=== PATIENT | female | born 2000 | race Hispanic/Latino ===

== ENCOUNTER 2020-09-11 15:32 | Inpatient (IN) | payer OTHER ==
[2020-09-11] MEDS ORDERED: Albuterol Sulfate 2.5 mg/3 ml Neb ONE ×2 (15:42→15:43)
[2020-09-11] MEDS ORDERED: Dexamethasone 10 MG/ML VIAL ONE (15:43)
[2020-09-11 16:09] LABS: Hemoglobin 12.3 g/dL (12.0-15.5); Mean Corpuscular HGB CONC 33.5 g/dL (32.0-36.0); Mean Corpuscular Hemoglobin 29.9 pg (27.0-33.0); Mean Corpuscular Volume 89.3 fl (81.6-98.3); Mean Platelet Volume 10.5 fl (7.4-10.4); Platelet Count 363 10x3/uL (150-450); RBC Distribution Width 12.1 % (11.5-14.5); Red Blood Cell (RBC) Count 4.11 10x6/uL (3.90-5.03); White Blood Cell (WBC) Count 17.7 10x3/uL (3.5-10.5)
[2020-09-11 16:10] LABS: MDiff Complete? YES
[2020-09-11 16:14] LABS: ALT (SGPT) 10 U/L (8-55); AST (SGOT) 15 U/L (5-34); Albumin 3.9 g/dL (3.5-5.0); Alkaline Phosphatase 64 U/L (40-110); Anion Gap 9 mmol/L (10-20); BUN (Urea Nitrogen) 12 mg/dL (7.0-18.7); Bilirubin, Total 0.3 mg/dL (0.2-1.2); Calc. Creatinine Clearance 0 mL/min (70-130); Calcium 8.1 mg/dL (7.8-10.44); Carbon Dioxide 27 mmol/L (22-29); Chloride 109 mmol/L (98-107); Globulin 2.5 g/dL (2.4-3.5); Glucose 157 mg/dL (70-105); Protein, Total 6.4 g/dL (6.0-8.3)
[2020-09-11 16:22] LABS: Potassium 2.9 mmol/L (3.5-5.1); Sodium 142 mmol/L (136-145)
[2020-09-11 16:37] LABS: Actual Bicarbonate (HCO3v) 22 mEq/L (22-28); Base Excess -6.7 mEq/L (-2.0 to +3.0); Calcium, Ionized (venous) 1.15 mmol/L (1.16-1.32); Chloride (VBG) 105 mmol/L (98-106); Hemoglobin (Hb) 13.1 g/dL (11.7-15.5); Potassium (VBG) 2.95 mmol/L (3.70-5.30); Puncture Site Other Site; Sodium 140.7 mmol/L (133-146); pH (venous) 7.19 (7.32-7.43)
[2020-09-11] MEDS ORDERED: Midazolam HCl 2 mg/2 ml Vial ONE ×2 (16:37→16:53)
[2020-09-11] MEDS ORDERED: Fentanyl CADD 100 ML IVPB ONE (16:47)
[2020-09-11] MEDS ORDERED: Fentanyl 100 MCG/2 ML VIAL ONE (16:53)
[2020-09-11 16:56] LABS: SARS-CoV-2 NAA Rapid Test Not Detected (NotDetected)
[2020-09-11] MEDS ORDERED: Famotidine/PF 20 mg/2ml Vial ONE (17:10)
[2020-09-11] MEDS ORDERED: Ondansetron PF 4 MG/2 ML Vial IVP PRN (17:14)
[2020-09-11] MEDS ORDERED: Acetaminophen 650 MG Suppository PR PRN (17:14)
[2020-09-11 17:17] LABS: Band 1 % (5-11); Eosinophils 1 % (0-10); Lymphocytes 25 % (21-51); Monocytes 2 % (0-10); Neutrophil 70 % (42-75); Reactive Lymphocytes 1 % (0-10)
[2020-09-11 17:23] LABS: Platelet Morphology Comment Appears Adequate; RBC Morphology Normal
[2020-09-11] MEDS ORDERED: Potassium Chloride 20 MEQ/100 ML PREMIX BAG ONE (17:35)
[2020-09-11] MEDS: methylPREDNISolone Sod Succ 40 MG VIAL IVP SCH ×2 (18:05→23:27)
[2020-09-11] MEDS ORDERED: Propofol 1,000 MG/100 ML VIAL IV ONE (18:19)
[2020-09-11 18:21] LABS: Bilirubin Neg (Negative); Blood, Urine Negative (Negative); Clarity Clear (Clear); Glucose, Urine (Dipstick) Normal (Negative); Ketone, Urine Negative (Negative); Leukocyte Negative (Negative); Nitrite Negative (Negative); Protein, Urine (Dipstick) Negative (Neg-Trace); Specific Gravity, Urine 1.015 (1.002-1.036); Urobilinogen Normal mg/dL (Less than 2)
[2020-09-11 18:26] LABS: Pregnancy Test - Urine (BHCG) Negative (Negative); Pregu Control Background? CLEAR/WHITE (CLR/WHITE); Pregu Control Bar Appear? YES (CONTROL BAR); Specific Gravity 1.015 (1.002-1.036)
[2020-09-11 18:30] LABS: Amphetamine Not Detected (NotDetected); Barbiturates Screen Not Detected (NotDetected); Benzodiazepine Screen Not Detected (NotDetected); Cocaine Metabolite Screen Not Detected (NotDetected); Methadone Not Detected (NotDetected); Methamphetamine Not Detected (NotDetected); Opiate Screen Not Detected (NotDetected); Oxycodone Screen Not Detected (NotDetected); Phencyclidine (PCP) Not Detected (NotDetected); THC/Cannabinoid Screen Not Detected (NotDetected); Tricyclic Screen Not Detected (NotDetected)
[2020-09-11] MEDS ORDERED: Propofol BOLUS 1,000 MG/100 ML VIAL IV PRN (18:30)
[2020-09-11 18:32] VITALS: BMI 31.8
[2020-09-11] MEDS: Propofol 1,000 MG/100 ML VIAL IV PRN (19:42)
[2020-09-11] MEDS: diphenhydrAMINE 50 MG/ML VIAL IVP SCH (20:08)
[2020-09-11] MEDS: Famotidine/PF 20 mg/2ml Vial SLOW IVP SCH (20:08)
[2020-09-11 20:31] LABS: ALT (SGPT) 10 U/L (8-55); AST (SGOT) 16 U/L (5-34); Albumin 4.2 g/dL (3.5-5.0); Alkaline Phosphatase 62 U/L (40-110); Anion Gap 14 mmol/L (10-20); BUN (Urea Nitrogen) 11 mg/dL (7.0-18.7); Bilirubin, Total 0.2 mg/dL (0.2-1.2); Calc. Creatinine Clearance 135 mL/min (70-130); Calcium 8.3 mg/dL (7.8-10.44); Carbon Dioxide 22 mmol/L (22-29); Chloride 109 mmol/L (98-107); Globulin 2.6 g/dL (2.4-3.5); Glucose 142 mg/dL (70-105); Potassium 3.7 mmol/L (3.5-5.1); Protein, Total 6.8 g/dL (6.0-8.3); Sodium 141 mmol/L (136-145)
[2020-09-11 21:54] LABS: pH, Arterial 7.28 (7.35-7.45)
[2020-09-11 21:55] LABS: Actual Bicarbonate (HCO3a) 20.9 mEq/L (22-28); Base Excess (BEa) -5.7 mEq/L (-2.0 to +3.0); CO2 Tension 45.3 mmHg (35.0-45.0); Carboxyhemoglobin (COHb) 0.3 gm% (0.0-3.0)
[2020-09-11 21:56] LABS: Calcium, Ionized (arterial) 1.11 mmol/L (1.12-1.30)
[2020-09-11 21:58] LABS: ALV-art Gradient 150.375 mmHg (0-20)
[2020-09-11 22:25] LABS: CO2 Tension 46.3 mmHg (35.0-45.0); Calcium, Ionized (arterial) 1.19 mmol/L (1.12-1.30); Carboxyhemoglobin (COHb) 0.3 gm% (0.0-3.0); Hemoglobin (Hb) 12.7 g/dL (12.0-16.0); O2 Tension (PaO2), arterial 204.8 mmHg (80.0-100.0); Potassium - ABG Lab 4.2 mmol/L (3.70-5.30); Puncture Site RRA; pH, Arterial 7.25 (7.35-7.45)
[2020-09-11 22:30] LABS: ALV-art Gradient 22.525 mmHg (0-20)
[2020-09-12 01:39] LABS: Anion Gap 18 mmol/L (10-20); BUN (Urea Nitrogen) 9 mg/dL (7.0-18.7); Calc. Creatinine Clearance 138 mL/min (70-130); Calcium 8.4 mg/dL (7.8-10.44); Carbon Dioxide 14 mmol/L (22-29); Chloride 110 mmol/L (98-107); Glucose 159 mg/dL (70-105); Lactic Acid 6.8 mmol/L (0.5-2.2); Magnesium 1.6 mg/dL (1.6-2.6); Potassium 3.6 mmol/L (3.5-5.1); Sodium 138 mmol/L (136-145)
[2020-09-12 01:47] LABS: Phosphorus 1.9 mg/dL (2.3-4.7)
[2020-09-12] MEDS ORDERED: Potassium Chloride 20 MEQ in Premix Bag 1 BAG IVPB SCH (02:45)
[2020-09-12] MEDS: Lactated Ringer's 1,000 ML IV SCH ×2 (02:50→08:32)
[2020-09-12] MEDS: diphenhydrAMINE 50 MG/ML VIAL IVP SCH ×2 (03:50→11:49)
[2020-09-12] MEDS: Propofol 1,000 MG/100 ML VIAL IV PRN (03:50)
[2020-09-12 04:21] LABS: Actual Bicarbonate (HCO3a) 12.2 mEq/L (22-28); Base Excess (BEa) -11.5 mEq/L (-2.0 to +3.0); CO2 Tension 22.3 mmHg (35.0-45.0); Calcium, Ionized (arterial) 1.21 mmol/L (1.12-1.30); Carboxyhemoglobin (COHb) 0.3 gm% (0.0-3.0); Hemoglobin (Hb) 11.7 g/dL (12.0-16.0); O2 Tension (PaO2), arterial 180.1 mmHg (80.0-100.0); Potassium - ABG Lab 3.9 mmol/L (3.70-5.30); Puncture Site RRA; pH, Arterial 7.36 (7.35-7.45)
[2020-09-12 04:23] LABS: ALV-art Gradient 41.575 mmHg (0-20)
[2020-09-12 04:55] LABS: #Monocytes 0.2 10x3/uL (0.0-1.1); #Neutrophils 16.1 10x3/uL (1.5-8.4); %Basophils 0.1 % (0.0-2.0); %Lymphocytes 3.9 % (18.0-47.0); %Neutrophils 94.4 % (40.0-75.0); Mean Corpuscular HGB CONC 33.2 g/dL (32.0-36.0); Mean Corpuscular Hemoglobin 30.3 pg (27.0-33.0); Mean Corpuscular Volume 91.2 fl (81.6-98.3); Mean Platelet Volume 10.8 fl (7.4-10.4); Platelet Count 275 10x3/uL (150-450); RBC Distribution Width 12.2 % (11.5-14.5); Red Blood Cell (RBC) Count 3.63 10x6/uL (3.90-5.03)
[2020-09-12] MEDS: methylPREDNISolone Sod Succ 40 MG VIAL IVP SCH ×4 (05:06→23:31)
[2020-09-12 05:08] LABS: ALT (SGPT) 10 U/L (8-55); AST (SGOT) 12 U/L (5-34); Albumin 3.7 g/dL (3.5-5.0); Alkaline Phosphatase 53 U/L (40-110); Anion Gap 16 mmol/L (10-20); BUN (Urea Nitrogen) 9 mg/dL (7.0-18.7); Bilirubin, Total 0.3 mg/dL (0.2-1.2); Calc. Creatinine Clearance 145 mL/min (70-130); Calcium 8.7 mg/dL (7.8-10.44); Carbon Dioxide 14 mmol/L (22-29); Chloride 111 mmol/L (98-107); Globulin 2.6 g/dL (2.4-3.5); Glucose 165 mg/dL (70-105); Lactic Acid 6.6 mmol/L (0.5-2.2); Potassium 4.1 mmol/L (3.5-5.1); Protein, Total 6.3 g/dL (6.0-8.3); Sodium 137 mmol/L (136-145)
[2020-09-12] MEDS: Enoxaparin Sodium 40 MG/0.4 ML SYRINGE SC SCH (08:31)
[2020-09-12] MEDS: Famotidine/PF 20 mg/2ml Vial SLOW IVP SCH ×2 (08:31→21:07)
[2020-09-12] MEDS ORDERED: Lorazepam 2 MG/ML VIAL SLOW IVP SCH (09:00)
[2020-09-12] MEDS ORDERED: Lorazepam 2 MG/ML VIAL ONE (09:12)
[2020-09-12] MEDS: Dexmedetomidine In 0.9 % NaCl 100 ML IVPB SCH ×2 (11:51→21:01)
[2020-09-12] MEDS ORDERED: Sodium Bicarbonate 150 MEQ in Dextrose 5% in Water 1,000 ML IV SCH (12:00)
[2020-09-12 12:13] LABS: Actual Bicarbonate (HCO3a) 19.5 mEq/L (22-28); Base Excess (BEa) -4.3 mEq/L (-2.0 to +3.0); CO2 Tension 31.8 mmHg (35.0-45.0); Calcium, Ionized (arterial) 1.26 mmol/L (1.12-1.30); Carboxyhemoglobin (COHb) 0.3 gm% (0.0-3.0); Hemoglobin (Hb) 11.8 g/dL (12.0-16.0); O2 Tension (PaO2), arterial 121.4 mmHg (80.0-100.0); Potassium - ABG Lab 4.2 mmol/L (3.70-5.30); Puncture Site RRA; RapidComm Collect By EA; pH, Arterial 7.41 (7.35-7.45)
[2020-09-12 18:10] LABS: Lactic Acid 1.4 mmol/L (0.5-2.2)
[2020-09-12 18:14] LABS: ALT (SGPT) 11 U/L (8-55); AST (SGOT) 16 U/L (5-34); Albumin 3.9 g/dL (3.5-5.0); Alkaline Phosphatase 53 U/L (40-110); Anion Gap 13 mmol/L (10-20); BUN (Urea Nitrogen) 11 mg/dL (7.0-18.7); Bilirubin, Total 0.3 mg/dL (0.2-1.2); Calc. Creatinine Clearance 152 mL/min (70-130); Carbon Dioxide 20 mmol/L (22-29); Chloride 109 mmol/L (98-107); Globulin 2.7 g/dL (2.4-3.5); Glucose 167 mg/dL (70-105); Protein, Total 6.6 g/dL (6.0-8.3); Sodium 138 mmol/L (136-145)
[2020-09-13] MEDS: methylPREDNISolone Sod Succ 40 MG VIAL IVP SCH ×2 (05:43→11:56)
[2020-09-13 07:54] VITALS: BP 121/50
[2020-09-13] MEDS: Famotidine/PF 20 mg/2ml Vial SLOW IVP SCH (08:51)
[2020-09-13] MEDS: Enoxaparin Sodium 40 MG/0.4 ML SYRINGE SC SCH (08:51)
[2020-09-13 11:07] LABS: Hemoglobin 11.8 g/dL (12.0-15.5); Mean Corpuscular HGB CONC 33.3 g/dL (32.0-36.0); Mean Corpuscular Hemoglobin 30.2 pg (27.0-33.0); Mean Corpuscular Volume 90.5 fl (81.6-98.3); Mean Platelet Volume 10.8 fl (7.4-10.4); Platelet Count 296 10x3/uL (150-450); RBC Distribution Width 12.6 % (11.5-14.5); Red Blood Cell (RBC) Count 3.91 10x6/uL (3.90-5.03)
[2020-09-13 12:26] LABS: MDiff Complete? YES
[2020-09-13 12:27] LABS: Lymphocytes 2 % (21-51); Monocytes 3 % (0-10); Neutrophil 95 % (42-75)
[2020-09-13 12:34] LABS: Platelet Morphology Comment Appears Adequate; RBC Morphology Normal
[2020-09-15 11:51] LABS: Potassium - ABG Lab 3.7 mmol/L (3.70-5.30)
[2020-09-15 11:52] LABS: Puncture Site RRA
== END 2020-09-13 16:30 | disposition home or self-care (01) | DRG 915 ==
LOC: CSHERS 15:32 → CSHIMCU 17:55
PROVIDERS: ADMIT Family Medicine; ATTEND Family Medicine
PROC: 5A1945Z Respiratory Ventilation, 24-96 Consecutive Hours (ICD-10-PCS; principal; 2020-09-11)
PROC: 0CJS8ZZ Inspection of Larynx, Via Natural or Artificial Opening Endoscopic (ICD-10-PCS; 2020-09-12)
DX: T78.07XA Anaphylactic reaction due to milk and dairy products, initial encounter (principal); J96.00 Acute respiratory failure, unspecified whether with hypoxia or hypercapnia; E87.2 Acidosis; Z20.822 Contact with and (suspected) exposure to COVID-19; E87.6 Hypokalemia; D72.829 Elevated white blood cell count, unspecified; Z91.011 Allergy to milk products
CPT/HCPCS: 0240U; 36415; 36600; 51702; 71045; 80053; 80306; 81003; 81025; 82805; 83605; 83735; 84100; 85025; 93005; 94002; 94003; 94640; 94760; 96365; 96374; 96375; 96376; 99292; J1100; J1200; J1650; J2060; J2250; J2704; J2920; J3010; J3475; J3480; J3490; J7070; J7611; J7620; S0028